=== PATIENT | female | born 1985 | race Caucasian/White ===

== ENCOUNTER 2017-05-01 07:41 | Outpatient (CLI) ==
--- NOTE | 2017-05-01 08:16 | US ---
EXAM: Right upper quadrant abdominal ultrasound. History: Right upper quadrant abdominal pain. Technique: Multiple sonographic images through the abdomen were obtained. Color duplex Doppler was used to interrogate vascular flow. Findings: The liver is not enlarged. No focal liver lesions identified sonographically. Pancreas is not well visualized due to obscuration by bowel gas. Limited visualization of the right kidney demonstrates n o evidence for hydronephrosis. No abdominal ascites. No shadowing gallstones. There is antegrade f low within the main portal vein. Gallbladder wall is not thickened. Common bile duct measures 0.3 c m in caliber. Impression: Unremarkable exam
== END 2017-05-01 07:42 | disposition home or self-care (01) ==
LOC: RAD 07:41
PROVIDERS: ATTEND Internal Medicine
DX: R10.11 Right upper quadrant pain (principal)

== ENCOUNTER 2017-05-07 07:54 | Outpatient (CLI) ==
--- NOTE | 2017-05-07 10:34 | NM ---
EXAM: Hepatobiliary imaging HISTORY: Right upper quadrant pain COMPARISON: Limited abdominal ultrasound on 05/01/2017 was unremarkable. TECHNIQUE: Patient was injected 5.1 mCi of technetium 99m Choletec intravenously. Multiple anterior scintigraphic images of the right upper quadrant region of the abdomen were obtained up to 1 hour int erval. Patient was infused 2 mcg of cholecystokinin intravenously. Gallbladder ejection fraction wa s calculated. FINDINGS: There is normal visualization of liver, gallbladder, bile duct and small bowel loops. Gall bladder ejection fraction is 34%, slightly below the normal range. 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
== END 2017-05-07 07:55 | disposition home or self-care (01) ==
LOC: RAD 07:54
PROVIDERS: ATTEND Internal Medicine
DX: R10.11 Right upper quadrant pain (principal)